=== PATIENT | female | born 1965 | race African-American/Black ===

== ENCOUNTER 2017-03-15 16:45 | Emergency (ER) | payer MEDICARE, OTHER ==
[~2017-03-15] VITALS: Ht 160 cm; Wt 97.1 kg
[~2017-03-15 16:45] MED LIST: ALBUTEROL17 GM INH; AMBIEN10 MG PO; ASPIRIN81 MG PO; ATARAX PO; BAYER ASPIRIN325 M1 PO; BUSPAR15 M1 PO; CIPRO PO; CLINDAMYCIN HC300 MG PO; FLEXERIL10 MG PO; GUAIFENESIN 400 MG; IBUPROFEN800 MG PO; IMITREX PO; KLONOPIN; LASIX; LASIX20 MG PO; LEVAQUIN PO; LISINOPRIL10 MG PO; LISINOPRIL20 MG PO; LORTAB 10-5001 EACH; LOVASTATIN20 M1 PO; MEDROL PO; MIRTAZAPINE30 MG; MULTI VITAMIN1 EACH PO; OXECTA5 MG; OXYCODONE15 M1 PO; PAXIL PO; PEPCID PO; PERCOCET 10/3251 TAB PO; PHENERGAN25 M1 PO; PROTONIX PO; REMERON30 MG PO; ST JOSEPH ASPIR81 MG; TOPROL XL PO; TRIAMCINOLONE AC1 GM EXT; VITAMIN D32000 UNIT PO; WELLBUTRIN PO; XANAX0.5 M1 PO; XANAX0.5 MG PO; ZANAFLEX PO; ZANAFLEX4 M1 PO; ZEASORB-AF70 G1 TOP
== END 2017-03-15 21:20 | disposition home or self-care (01) ==
LOC: CED 16:45
DX: M79.661 Pain in right lower leg (principal); I10 Essential (primary) hypertension; Z90.710 Acquired absence of both cervix and uterus; Z88.0 Allergy status to penicillin; Z88.2 Allergy status to sulfonamides; Z88.5 Allergy status to narcotic agent; Z91.041 Radiographic dye allergy status; Z88.6 Allergy status to analgesic agent
CPT/HCPCS: 99283

== ENCOUNTER → 2017-03-17 | Outpatient (CLI) | payer MEDICARE, OTHER ==
--- NOTE | ~2017-03-17 | US85 ---
[facility] A Service of [facility] RADIOLOGY TEXT RESULTS PATIENT: WALI MORSE LOCATION: CNIV : 63 UNIT #: [id number] AGE: [address]: Camilo Carney MD SEX: F ORDER DR: [id number] [facility] [address] [place], [place] [address] [id number] O MR#: [id number] Acc #: [id number] NAME: WALI MORSE. : 1965 SEX: F STUDY DATE/TIME: 03/17/2017 13:36 UNIT: CNIV ROOM: STUDY DESCRIPTION: JOSE CRUZ Act[employer]eds [employer] Stdy Attending Physician: Camilo Carney M.D. Referring Physician: Camilo Carney M.D. Ordering Physician: Camilo Carney M.D. Primary Care Physician: Edmond Morales M.D. MEDICAL IMAGING REPORT This report is preliminary unless electronic signature is present EXAM Right lower extremity venous Doppler INDICATION Right lower leg and foot pain swelling for 3 days. Patient has a history of DVT within the right calf. Patient is currently on aspirin 81 mg per day. FINDINGS The patient's right common femoral, deep femoral, superficial femoral, popliteal, anterior tibial, and peroneal veins are all patent and compressible. Patient is noted to have occlusive thrombus within the right posterior tibial vein. The patient's saphenous vein is patent and compressible. IMPRESSION The study is positive for a DVT involving the right posterior tibial vein. No evidence of SVT is identified. Please note, the patient was asked to stay in the waiting room and left AMA. I contacted the warehouse foreman who told me to contact Dr. Carney who had ordered the examination, but he is not currently working in the emergency department today. I subsequently contacted, the ER nursing supervisor motor vehicle assembly and she will pass the information along to Dr. Craney's partners Drs. Sandra and Tatiana. Dictated by... Rhonda Urban M.D. THIS IS AN ELECTRONICALLY VERIFIED REPORT Rhonda Urban M.D. at 03/19/2017 8:37 AM AFF/aa [facility] A Service of [facility] RADIOLOGY TEXT RESULTS PATIENT: WALI MORSE LOCATION: IV : 63 UNIT #: [id number] AGE: [address]: Camilo Carney MD SEX: F ORDER DR: TD: 03/18/2017 12:50 JOB #: [id number] MEDICAL IMAGING REPORT Page 1 of 1 COPY
== END | disposition home or self-care (01) ==
LOC: CNIV 12:54
DX: M79.604 Pain in right leg (principal); I82.411 Acute embolism and thrombosis of right femoral vein
CPT/HCPCS: 93971